=== PATIENT | female | born 1995 | race Caucasian/White ===

== ENCOUNTER 2017-10-28 23:46 | Inpatient (IN) | payer OTHER ==
[~2017-10-28] VITALS: Ht 167.6 cm; Wt 118.2 kg
[~2017-10-28 23:46] MED LIST: ON NO MEDS
[2017-10-29] VITALS (9 sets, daily range): BP systolic 125–162; BP diastolic 69–91
[2017-10-29 00:35] LABS: BASOPHIL COUNT 0.1 K/uL (0-0.1); EOSINOPHIL (%) 1.7 % (0-5); EOSINOPHIL COUNT 0.4 K/uL (0-0.3); HEMATOCRIT 40.4 % (36.0-46.0); IMMATURE GRANULOCYTE (%) 1.4 % (0.0-0.7); IMMATURE GRANULOCYTE COUNT 0.3 K/uL; INSTRUMENT ABS NEUTROPHIL CT 14.5 K/uL; LYMPHOCYTE COUNT 4.8 K/uL (1.0-2.8); MCH 27.1 PG (29.0-34.0); MCHC 33.4 G/DL (30.0-36.0); MEAN PLAT.VOLUME 11.2 uM^3 (9.5-12.4); MONOCYTE (%) 7.3 % (3-12); MONOCYTE COUNT 1.6 K/uL (0-0.8); NEUTROPHIL COUNT 14.5 K/uL (1.8-6.4); PLATELET COUNT 310 K/uL (156-360); RBC DIS.WIDTH-CV 14.2 % (11.8-14.6); RBC DIS.WIDTH-SD 41.1 % (39-53); RED BLOOD COUNT 4.99 M/uL (3.80-5.20); WHITE BLOOD COUNT 21.7 K/uL (4.1-10.2)
[2017-10-29] MEDS ORDERED: IBUPROFEN800 MG PO (02:09)
[2017-10-30 08:16] VITALS: BP 103/57
[2017-10-30 15:50] VITALS: BP 136/81
== END 2017-10-30 17:05 | disposition home or self-care (01) | DRG 775 ==
LOC: LDRP-OP 23:46 → 2WEST 23:47 → LDRP-OP 11-26 14:11
PROVIDERS: Midwife
DX: O99.334 Smoking (tobacco) complicating childbirth (principal); Z68.41 Body mass index [BMI] 40.0-44.9, adult; Z37.0 Single live birth; Z3A.40 40 weeks gestation of pregnancy; F17.210 Nicotine dependence, cigarettes, uncomplicated; E66.9 Obesity, unspecified; O99.214 Obesity complicating childbirth; M41.9 Scoliosis, unspecified; F41.9 Anxiety disorder, unspecified; O77.0 Labor and delivery complicated by meconium in amniotic fluid; O99.344 Other mental disorders complicating childbirth; O71.4 Obstetric high vaginal laceration alone; O99.89 Other specified diseases and conditions complicating pregnancy, childbirth and the puerperium
CPT/HCPCS: 85025; C1755; G0378; J1050; J2590; J7120

== ENCOUNTER 2018-05-16 11:23 | Emergency (ER) | payer OTHER ==
[~2018-05-16] VITALS: Ht 167.6 cm; Wt 106.0 kg
[~2018-05-16 11:23] MED LIST changes: +IBUPROFEN800 MG PO
[2018-05-16 12:29] LABS: HEMOGLOBIN 14.9 G/DL (11.9-15.5); MCH 27.4 PG (29.0-34.0); MCHC 33.9 G/DL (30.0-36.0); PLATELET COUNT 335 K/uL (156-360); RBC DIS.WIDTH-CV 13.3 % (11.8-14.6); RBC DIS.WIDTH-SD 38.4 % (39-53); RED BLOOD COUNT 5.43 M/uL (3.80-5.20); WHITE BLOOD COUNT 15.4 K/uL (4.1-10.2)
[2018-05-16 13:08] LABS: CHLORIDE 107 mEq/L (99-109); POTASSIUM 4.1 mEq/L (3.7-5.4); SODIUM 139 mEq/L (136-147)
[2018-05-16 13:10] LABS: GLUCOSE 93 mg/dL (70-99); TOTAL PROTEIN 7.2 g/dL (6.4-8.3)
[2018-05-16 13:12] LABS: TOTAL BILIRUBIN 0.7 mg/dL (0.0-1.0)
[2018-05-16 13:13] LABS: ALKALINE PHOSPHATASE 68 IU/L (3-129)
[2018-05-16 13:14] LABS: CREATININE 0.8 mg/dL (0.6-1.3); GFR ESTIMATE (CALCULATED) > 59 mL/min/
[2018-05-16 13:15] LABS: AST (GOT) 14 IU/L (2-34); UREA NITROGEN (BUN) 10 mg/dL (9-23)
[2018-05-16 13:16] LABS: ALT (GPT) 13 IU/L (3-49)
[2018-05-16 13:17] LABS: LIPASE 33 U/L (1.0-51.0)
[2018-05-16 13:22] LABS: QUANTITATIVE HCG < 4.0 MIU/ML
[2018-05-16 13:24] LABS: APPEARANCE SL.HAZY ((CLEAR)); BILIRUBIN NEGATIVE; BLOOD LARGE; COLOR YELLOW ((YELLOW)); GLUCOSE (STRIP) NEGATIVE; KETONES NEGATIVE; LEUKOCYTES TRACE; NITRITE NEGATIVE; PROTEIN (STRIP) >=500; SPECIFIC GRAVITY 1.023 (1.000-1.030); UROBILINOGEN 0.2 MG/DL (0.2-1.0)
[2018-05-16 13:48] LABS: EPITHELIAL CELLS 2+ /HPF; WHITE BLOOD CELLS RARE /HPF (0-5)
[2018-05-16 13:49] LABS: BACTERIA 1+ /HPF; MUCUS NONE SEEN /LPF; UCUL ADDED? NO
[2018-05-16] MEDS ORDERED: ZOFRAN ODT4 MG PO (13:55)
[2018-05-16] MEDS ORDERED: BENTYL10 MG PO (13:55)
[2018-05-16 14:09] VITALS: BP 120/84
== END 2018-05-16 14:23 | disposition home or self-care (01) ==
LOC: EME 11:23
DX: R10.11 Right upper quadrant pain (principal); R11.2 Nausea with vomiting, unspecified; F32.9 Major depressive disorder, single episode, unspecified; I10 Essential (primary) hypertension; F41.9 Anxiety disorder, unspecified; Z88.2 Allergy status to sulfonamides; F17.200 Nicotine dependence, unspecified, uncomplicated
CPT/HCPCS: 76705; 80053; 81003; 83690; 84702; 85027; 99281; 99284